=== PATIENT | female | born 1980 | race Two or more races ===

== ENCOUNTER 2021-04-03 06:39 | Day surgery (SDC) | payer OTHER ==
[~2021-04-03] VITALS: Ht 170.2 cm; Wt 72.6 kg
[2021-04-03 07:28] LABS: HCG SERUM NEGATIVE (NEGATIVE)
[2021-04-03 07:45] LABS: HEMATOCRIT 40.5 % (36.0-48.0); HEMOGLOBIN 13.5 g/dL (12-16); MCH 31.3 pg (26.0-34.0); MCHC 33.3 g/dL (31.0-37.0); MCV 93.8 fL (80.0-100.0); MEAN PLATELET VOLUME 11.1 fL (7.4-10.4); RBC 4.32 10x6/uL (4.00-5.40); RDW 17.2 % (11.5-14.5); WBC 3.3 10x3/uL (4.8-10.8)
[2021-04-03 08:08] VITALS: BP 111/67; Ht 170.2 cm; Wt 72.6 kg
[2021-04-03 08:27] LABS: HCG URINE NEGATIVE (NEGATIVE)
--- NOTE | 2021-04-03 10:54 | HP ---
PATIENT: YIN JAVIER MEDICAL RECORD: [id number] ACCOUNT: [id number] LOCATION:[facility] : 78 ADMISSION DATE: 04/03/21 PCP: MARIEL ENCINAS MD HISTORY AND PHYSICAL EXAMINATION HISTORY OF PRESENT ILLNESS: Yin is 40. She has a right submandibular mass, is painful and sore. She is being admitted for right submandibular gland excision. PAST SURGICAL HISTORY: Carpal tunnel surgery bilaterally. MEDICATIONS: None. ALLERGIES: No known drug allergies. PHYSICAL EXAMINATION: GENERAL: Healthy appearing. FACE: Normal, symmetric. EYES: Sclerae and conjunctivae are normal. EARS: Canals and TMs are normal. NOSE: No masses, polyps, or drainage. ORAL CAVITY AND OROPHARYNX: Tongue protrudes in midline. Pharynx normal. NECK: Right submandibular gland feels like a stone in the gland is tender to touch. Floor of the mouth is normal. CHEST: Clear. CARDIOVASCULAR: Regular rate and rhythm, no murmur. EXTREMITIES: Normal. IMPRESSION: Right submandibular mass, sialadenitis, possible stone. PLAN: Right submandibular gland excision. TRANSINT:[id number] Voice Confirmation ID: [id number] DOCUMENT ID: [id number] MARIEL ENCINAS MD at 1054 CC: [id number] DICTATION DATE: 04/02/2148 MANAGER TECHNICAL SUPPORT: 04/02/21 0940 [facility] [address] [place] [address]
--- NOTE | 2021-04-03 12:15 | NUR ---
DISCHARGE INSTRUCTIONS REVIEWED WITH PT AND SPOUSE CHANTE. PROVIDED WRITTEN DC INSTRUCTIONS IN LUXEMBOURGER AND CROATIAN. CHANTE STATES HE UNDERSTANDS CROATIAN WITHOUT DIFFICULTY. PER DR ENCINAS, HE WILL CALL PT TOMORROW TO SCHEDULE REMOVAL OF THE BERT DRAIN. DR ENCINAS WAS GIVEN CHANTE'S PHONE NUMBER. CHANTE AWARE TO BE ON ALERT FOR CALL FROM DR ENCINAS TOMORROW. BOTH PT AND CHANTE VOICED UNDERSTANDING OF ALL INSTRUCTIONS GIVEN. THEN THIS NURSE DEMONSTRATED HOW TO EMPTY BERT DRAIN AND TO RECORD ANY DRAINAGE THAT HE EMPTIES AND PROVIDE THIS INFORMATION TO DR ENCINAS TOMORROW. CHANTE ABLE TO RETURN DEMONSTRATION WITHOUT ERROR. PROVIDED MEDICINE CUPS AND LARGER CUP FOR CHANTE TO EMPTY BERT DRAIN INTO.
--- NOTE | 2021-04-03 12:40 | NUR ---
IV DC'D WITH CATH TIP INTACT. PT GETTING DRESSED FOR DISCHARGE. 10 ML OF BLOODY DRAINAGE EMPTIED FROM BERT DRAIN WHEN DEMONSTRATING BERT CARE TO PT'S SPOUSE CHANTE. 1250- PT DISCHARGED VIA W/C, ACCOMPANIED BY KELECHI, TO PO WITH SPOUSE DRIVING. ALL BELONGINGS WITH PT/SPOUSE.
--- NOTE | 2021-04-06 09:28 | OP ---
PATIENT NAME: SHARON JAVIER MEDICAL RECORD: [id number] :78 LOCATION:D.[facility] ADMISSION DATE: SURGEON: DORIAN CEDENO MD DATE OF OPERATION: 04/03/2021 PREOPERATIVE DIAGNOSIS: Right submandibular sialadenitis with sialolithiasis. POSTOPERATIVE DIAGNOSIS: Right submandibular sialadenitis with sialolithiasis. PROCEDURE: Right submandibular gland excision. SURGEON: Dorian Cedeno MD ANESTHESIA: General orotracheal. BLOOD LOSS: Less than 5 mL. SPECIMEN: Right submandibular gland. DRAIN: BERT through a separate stab incision inferior to the wound. COMPLICATIONS: None. DISPOSITION: To recovery, stable. DESCRIPTION OF PROCEDURE: She was brought to the operating room, placed in supine position, sedated and intubated by anesthesia. She was positioned, prepped and draped in the usual sterile fashion. Large skin crease in the right neck was chosen well over 3 cm below the angle of the mandible. Horizontal incision was made with a 15 blade. This was taken down through the platysma, elevated superiorly. Facial vein was ligated with 2-0 silk tie. I dissected directly superiorly to the inferior aspect of the submandibular gland. Fascia was dissected off and then the fascia was dissected off the gland superiorly. [employer] was used for retraction dissecting all the fascia off the gland, preserving the marginal branch of the facial nerve. The gland was dissected out. Anterior and posterior belly of digastric were identified and visualized as was the hypoglossal nerve, dissected anteriorly and superiorly, branch of the facial artery was ligated with 2-0 silk tie. Lingual nerve was pulled inferiorly. Typical appearance at tie was placed just above, taking the submandibular ganglion. I then dissected anteriorly to the duct and was palpated. No stones in the duct. It was normal. Tied off with 3-0 silk ties far anteriorly as possible. This removed the gland. It was sent for specimen. The wound was irrigated, carefully inspected, really no bleeding. A drain was placed through a separate stab incision inferior to the wound. The platysma layer was closed with interrupted 4-0 Vicryl. Skin was closed with running subcuticular 6-0 Prolene. Mastisol and Steri-Strips were applied. She was awakened, extubated, and transported to recovery in good condition. No complications. TRANSINT:[id number] Voice Confirmation ID: [id number] DOCUMENT ID: [id number] OPERATIVE REPORT [id number] SHARON JAVIER ERIC MD at 0928 CC: [id number] DICTATION DATE: 04/03/21 1055 [employer]: 04/03/21 1643 [facility] 04/03/21 [place] [id number] [place] [id number]
== END 2021-04-03 12:50 | disposition home or self-care (01) ==
LOC: D.OPS 06:39
PROVIDERS: Anesthesiology; ATTEND Otolaryngology
DX: K11.20 Sialoadenitis, unspecified (principal)